=== PATIENT | male | born 1950 | race Caucasian/White ===

== ENCOUNTER 2018-03-14 21:58 | Inpatient (IN) | payer MEDICARE, MEDICAID ==
[2018-03-14] MEDS ORDERED: Piperacillin/Tazobactam 3.375 GM VIAL ONE (23:29)
[2018-03-15] MEDS ORDERED: Enoxaparin Sodium 40 MG/0.4 ML SYRINGE SC SCH (02:27)
[2018-03-15] MEDS ORDERED: Sodium Chloride 0.9% 1,000 ML IV SCH (02:27)
[2018-03-15] MEDS ORDERED: Ondansetron HCl/PF 4 MG/2 ML Vial IVP PRN (02:27)
[2018-03-15] MEDS ORDERED: Ondansetron ODT 4 MG TAB PO PRN (02:27)
[2018-03-15] MEDS ORDERED: Acetaminophen 325 MG TAB PO PRN (02:27)
[2018-03-15 05:52] LABS: #Eosinphils 0.1 thou/uL (0.0-0.7); #Lymphocytes 0.9 thou/uL (1.20-3.40); #Monocytes 0.4 thou/uL (0.11-0.59); #Neutrophils 4.1 thou/uL (1.40-6.50); %Basophils 0.2 % (0.0-1.0); %Eosinophils 2.5 % (0.0-10.0); %Lymphocytes 15.8 % (21.0-51.0); %Monocytes 6.6 % (0.0-10.0); %Neutrophils 74.9 % (42.0-75.0); Hemoglobin 8.8 g/dL (14.0-18.0); Mean Corpuscular Hemoglobin 30.8 pg (27.0-31.0); Mean Corpuscular Volume 96.2 fl (80.0-94.0); Mean Platelet Volume 6.3 fL (7.4-10.4); Platelet Count 143 thou/uL (130-400); RBC Distribution Width 13.9 % (11.5-14.5); Red Blood Cell (RBC) Count 2.84 mill/uL (4.70-6.10); White Blood Cell (WBC) Count 5.5 thou/uL (4.8-10.8)
--- NOTE | 2018-03-15 06:21 | HP ---
DATE OF ADMISSION: 03/14/2018 TIME OF SERVICE: 2330. CHIEF COMPLAINT: None. The patient was sent here for pneumonia and hypothermia. HISTORY OF PRESENT ILLNESS: Mr. Gonzalez is a 67-year-old white male who was sent to the [place] from the [facility]. He has been a resident there since 1973. He is having shortness of breath and cough and was noted to have a temperature on arrival there of 92 .8. He was given a dose of antibiotics, the patient was transferred here. The patient does have sev ere mental retardation. Chest x-ray reportedly had a left lower lobe retrocardiac infiltrate so he w as sent here for further workup. On arrival, temperature is 95.8 rectally. The patient was placed on a David Hugger with a repeat temp erature of 97.9 when I was seeing him. He is awake and alert and pleasant. He is not very talkative and is unable to give any further histo ry. PAST MEDICAL HISTORY: 1. Mental retardation. 2. Bipolar disorder, unknown type. 3. Adenocarcinoma of the colon, status post total colectomy. 4. Benign prostatic hypertrophy. 5. Bunions. 6. Bilateral cataracts. PAST SURGICAL HISTORY: Total colectomy. HOME MEDICATIONS: Home medications have been reviewed in their entirety and include: 1. Aspirin 81 mg daily. 2. Cholecalciferol 400 units p.o. b.i.d. 3. Proscar 5 mg daily. 4. Acidophilus 1 tablet t.i.d. 5. Lisinopril 2.5 mg daily 6. Multivitamin daily. 7. Neomycin/bacitracin/polymyxin B ointment topically as needed. 8. Zyprexa 20 mg p.o. q.p.m. 9. Ranitidine 150 mg p.o. b.i.d. 10. Simethicone 80 mg p.o. t.i.d. 11. Zocor 20 mg p.o. q.p.m. 12. Flomax 0.4 mg p.o. q.a.m. 13. Tolnaftate one spray topically daily. 14. Valproic acid 250 mg p.o. daily. ALLERGIES: NKDA. FAMILY HISTORY: Not obtainable from the patient. SOCIAL HISTORY: He lives at [facility] where has been since 1973. Per their records, he i s negative for alcohol, tobacco or drugs. REVIEW OF SYSTEMS: Not obtainable due to mental retardation. PHYSICAL EXAMINATION: VITAL SIGNS: Temperature 97.9, pulse 85, blood pressure 108/61, respiratory 18, satting 95% on room air. GENERAL: The patient is awake and alert. He appears to be in no acute distress. He is smiling and pleasant. He is quickly pulling the David Hugger back on him when it was taken off for examination. HEENT: Normocephalic, atraumatic. Does appear somewhat syndromic. Mucous membranes are moist. Pup ils are equal, round and reactive to light bilaterally, no lesions. NECK: Supple. I do not appreciate bruits. He has normal carotid upstrokes. LUNGS: Lungs are clear with excellent air movement. Some faint bibasilar crackles. I do not hear a nything in the retrocardiac region. There is no prolonged expiratory phase and no wheezes. CARDIOVASCULAR: He has normal S1 and S2. He is slightly tachycardic, but is regular. I do not appr eciate murmurs. ABDOMEN: Soft, it is nontender, nondistended, there is no mass, no organomegaly. EXTREMITIES: Show no cyanosis or clubbing. He has lower extremity contractures and severe deformity due to bunions. He has 1+ edema of the bilateral lower extremities. These stop just above the ankl e. LABORATORY DATA: CBC, CMP have been reviewed from the outside facility and are largely unremarkable. Chest x-ray showed a retrocardiac opacity, but no other acute changes. ASSESSMENT AND PLAN: 1. Possible left lower lobe pneumonia: We will continue levofloxacin 750 mg daily. 2. Hypothermia: In the setting of that, certainly could be a criteria for sepsis. I will continue antibiotics and watch. Being rewarmed and responding well. 3. Mental retardation. 4. Bipolar disorder. 5. History of adenocarcinoma of the colon, status post colectomy. 6. Bunions. 7. Benign prostatic hypertrophy on Flomax and Proscar, we will continue.
[2018-03-15 06:26] LABS: ALT (SGPT) 11 U/L (8-55); AST (SGOT) 15 U/L (5-34); Albumin 2.8 g/dL (3.4-4.8); Alkaline Phosphatase 84 U/L (40-150); Anion Gap 10 mmol/L (10-20); BUN (Urea Nitrogen) 6 mg/dL (8.4-25.7); Bilirubin, Total 0.5 mg/dL (0.2-1.2); Calc. Creatinine Clearance 85 mL/min (70-130); Calcium 8.8 mg/dL (7.8-10.44); Carbon Dioxide 25 mmol/L (23-31); Chloride 105 mmol/L (98-107); Estimated GFR-MDRD Greater than 90; Globulin 2.9 g/dL (2.4-3.5); Glucose 90 mg/dL (80-115); Protein, Total 5.7 g/dL (5.8-8.1); Sodium 136 mmol/L (136-145)
[2018-03-15] MEDS ORDERED: Non-Formulary Item 1 EACH (Ranitidine Hcl [Acid Reducer] 150 MG) PO SCH (09:00)
[2018-03-15] MEDS: Lisinopril 2.5 MG TAB PO SCH (09:08)
[2018-03-15] MEDS: Famotidine 20 MG TAB PO SCH ×2 (09:08→20:30)
[2018-03-15] MEDS: Valproic Acid 250 MG CAP PO SCH (09:09)
[2018-03-15] MEDS: Tamsulosin HCl 0.4 MG CAP PO SCH (09:09)
[2018-03-15] MEDS: Finasteride 5 MG TAB PO SCH (09:09)
[2018-03-15] MEDS: Multivitamin W/ Minerals 1 TAB PO SCH (09:09)
--- NOTE | 2018-03-15 12:08 | PDOC.PN ---
- Subjective Encounter Start Date: 03/15/18 Encounter Start Time: 11:50 Subjective: f/u for suspected LLL pneumonia and hypothermia. Currently receiving -: Levaquin and IVF's. No documented hypothermia per nursing. Pt asking -: to go home. - Objective Resuscitation Status: Resuscitation Status FULL:Full Resuscitation MAR Reviewed: Yes Vital Signs & Weight: Vital Signs (12 hours) Temp Pulse Resp BP BP BP Pulse Ox 03/15/18 11:42 97.4 F L 83 18 103/66 93 L 03/15/18 09:08 78 03/15/18 07:35 97.6 F 78 18 109/69 94 L 03/15/18 07:00 97.6 F 78 18 109/69 94 L 03/15/18 04:00 97.4 F L 78 16 116/60 94 L 03/15/18 03:15 97.9 F 84 16 03/15/18 02:27 97.9 F 84 16 120/70 93 L Weight Weight 119 lb 14.903 oz I&O: 03/14/18 03/15/18 03/16/18 06:59 06:59 06:59 Intake Total 750 Balance 750 Result Diagrams: 03/15/18 05:30 03/15/18 05:30 Additional Labs: Microbiology 03/14/18 22:45 Venous blood - Right Arm Blood Culture - Preliminary Specimen has been received and culture in progress. No Growth to date. 03/14/18 22:37 Venous blood - Right Hand Blood Culture - Preliminary Specimen has been received and culture in progress. No Growth to date. Radiology Reviewed by me: Yes (PCXR - pending) Phys Exam - Physical Examination Constitutional: NAD alert, talks a few words HEENT: PERRLA, moist MMs, sclera anicteric, oral pharynx no lesions Neck: no nodes, no JVD, supple Respiratory: no wheezing, no rales, no rhonchi, clear to auscultation bilateral Cardiovascular: RRR, no significant murmur, no rub Colostomy in place Gastrointestinal: soft, non-tender, no distention, positive bowel sounds Musculoskeletal: no edema, pulses present deformities of toes on bilat feet severe mental retardation Neurological: normal sensation, moves all 4 limbs Deviation from normal: few scattered abrasions on extremities Skin: normal turgor, cap refill <2 seconds Dx/Plan (1) LLL pneumonia Code(s): J18.1 - LOBAR PNEUMONIA, UNSPECIFIED ORGANISM Status: Acute Comment : Suspected with gm + cocci, continue Levaquin 750mg daily, monitor clinical progress, Pneumovax prior to d/c, check PCXR today (2) Hypothermia Code(s): T68.XXXA - HYPOTHERMIA, INITIAL ENCOUNTER Status: Acute Comment: Resolving, continue serial monitoring (3) HTN (hypertension) Code(s): I10 - ESSENTIAL (PRIMARY) HYPERTENSION Status: Chronic Qualifiers: Hypertension type: essential hypertension Qualified Code(s): I10 - Essential (primary) hypertension Comment: Resume Lisinopril 2.5mg daily, serial monitoring (4) Severe mental retardation Code(s): F72 - SEVERE INTELLECTUAL DISABILITIES Status: Chronic Comment: Sitter for 1:1, supportive mgmt (5) Macrocytic anemia Code(s): D53.9 - NUTRITIONAL ANEMIA, UNSPECIFIED Status: Chronic Comment: No current evidence of acute blood loss, repeat CBC in am to monitor - Plan continue antibiotics, social services assistant, respiratory therapy, DVT proph w/SCDs Continue supportive mgmt -: Saline lock IVF's -: PCXR today -: Continue Levaquin 750mg daily -: AM lab: BMP, CBC * Trial of pureed texture diet
--- NOTE | 2018-03-15 15:32 | RAD ---
PORTABLE AP CHEST: Date: 03/15/18 HISTORY: Left lower quadrant pneumonia. COMPARISON: 03/14/13. FINDINGS: Cardiac silhouette and pulmonary vasculature are within normal limits. While the retrocardiac region is not well evaluated, no definite consolidation is seen and there is no pleural effusion. Lungs are otherwise clear. A few small radiopaque densities overlie the right clavicle, which may be related to overlying artifact. Vascular calcification thoracic aorta. There is prominent osseous excrescence at the inferior aspect of the distal clavicle which may be related to prior injury. No other interval c hange. IMPRESSION: 1. No acute cardiopulmonary process. If patient's symptoms persist, follow-up imaging is advised wit h a PA and lateral chest x-ray. 2. Stable remote left-sided rib fractures. POS: [facility]
[2018-03-15] MEDS: Atorvastatin Calcium 10 MG TAB PO SCH (20:29)
[2018-03-15] MEDS: OLANZapine 5 MG TAB PO SCH (20:29)
[2018-03-15] MEDS ORDERED: Zolpidem Tartrate 5 MG TAB PO SCH (22:15)
[2018-03-16 04:55] LABS: Anion Gap 11 mmol/L (10-20); BUN (Urea Nitrogen) 7 mg/dL (8.4-25.7); Calc. Creatinine Clearance 79 mL/min (70-130); Calcium 9.3 mg/dL (7.8-10.44); Carbon Dioxide 28 mmol/L (23-31); Chloride 103 mmol/L (98-107); Estimated GFR-MDRD Greater than 90; Glucose 74 mg/dL (80-115); Sodium 138 mmol/L (136-145)
[2018-03-16 05:05] LABS: Band 4 % (5-11); Eosinophils 3 % (0-10); Hemoglobin 9.4 g/dL (14.0-18.0); Lymphocytes 30 % (21-51); MDiff Complete? YES; Mean Corpuscular HGB CONC 33.7 g/dL (32.0-36.0); Mean Corpuscular Hemoglobin 32.5 pg (27.0-31.0); Mean Corpuscular Volume 96.4 fl (80.0-94.0); Mean Platelet Volume 6.1 fL (7.4-10.4); Monocytes 7 % (0-10); Neutrophil 55 % (42-75); Platelet Count 143 thou/uL (130-400); RBC Distribution Width 13.7 % (11.5-14.5); Red Blood Cell (RBC) Count 2.89 mill/uL (4.70-6.10); White Blood Cell (WBC) Count 4.8 thou/uL (4.8-10.8)
[2018-03-16] MEDS: Lisinopril 2.5 MG TAB PO SCH (09:52)
[2018-03-16] MEDS: Finasteride 5 MG TAB PO SCH (09:52)
[2018-03-16] MEDS: Famotidine 20 MG TAB PO SCH ×2 (09:53→20:30)
[2018-03-16] MEDS: Tamsulosin HCl 0.4 MG CAP PO SCH (09:53)
[2018-03-16] MEDS: Valproic Acid 250 MG CAP PO SCH (09:54)
[2018-03-16] MEDS: Multivitamin W/ Minerals 1 TAB PO SCH (09:54)
--- NOTE | 2018-03-16 12:23 | PDOC.PN ---
- Subjective Encounter Start Date: 03/16/18 Encounter Start Time: 12:10 Subjective: f/u for suspected LLL PNA and hypothermia. No specific cough, fever or -: hypothermia documented. Eating ok but no BM or colostomy ouput -: recorded. - Objective MAR Reviewed: Yes Vital Signs & Weight: Vital Signs (12 hours) Pulse Resp BP BP Pulse Ox 03/16/18 09:52 59 L 113/59 L 03/16/18 07:15 59 L 16 113/57 L 93 L Weight Admit Weight 119 lb 14.896 oz Weight 119 lb 14.896 oz I&O: 03/15/18 03/16/18 03/17/18 06:59 06:59 06:59 Intake Total 930 Balance 930 Result Diagrams: 03/16/18 04:16 03/16/18 04:16 Additional Labs: Microbiology 03/14/18 22:45 Venous blood - Right Arm Blood Culture - Preliminary Specimen has been received and culture in progress. No Growth to date. 03/14/18 22:45 Venous blood - Right Arm Blood Culture - Preliminary NO GROWTH AT 48 HOURS 03/14/18 22:37 Venous blood - Right Hand Blood Culture - Preliminary Specimen has been received and culture in progress. No Growth to date. 03/14/18 22:37 Venous blood - Right Hand Blood Culture - Preliminary NO GROWTH AT 48 HOURS 03/14/18 17:30 Venous blood - Right Arm Blood Culture - Preliminary Specimen has been received and culture in progress. No Growth to date. 03/14/18 17:00 Venous blood - Right Arm Blood Culture - Preliminary Specimen has been received and culture in progress. No Growth to date. Radiology Reviewed by me: Yes (PCXR - no acute infiltrates) Phys Exam - Physical Examination Constitutional: NAD alert, mumbles HEENT: PERRLA, sclera anicteric, oral pharynx no lesions Neck: no nodes, no JVD, supple Respiratory: no wheezing, no rales, no rhonchi, clear to auscultation bilateral Cardiovascular: RRR, no significant murmur, no rub, gallop + colostomy in LUQ, no output noted Gastrointestinal: soft, non-tender, no distention, positive bowel sounds Musculoskeletal: no edema, pulses present Neurological: non-focal, moves all 4 limbs Skin: no rash, normal turgor, cap refill <2 seconds Dx/Plan (1) LLL pneumonia Code(s): J18.1 - LOBAR PNEUMONIA, UNSPECIFIED ORGANISM Status: Acute Comment : Suspected but repeat PCXR negative, d/c Levaquin, monitor clinical progress, Pneumovax prior to d/c (2) Hypothermia Code(s): T68.XXXA - HYPOTHERMIA, INITIAL ENCOUNTER Status: Acute Comment: Resolving, continue serial monitoring (3) Constipation Code(s): K59.00 - CONSTIPATION, UNSPECIFIED Status: Acute Qualifiers: Constipation type: slow transit constipation Qualified Code(s): K59.01 - Slow transit constipation Comment: Start Mag Citrate today, monitor for colostomy output (4) HTN (hypertension) Code(s): I10 - ESSENTIAL (PRIMARY) HYPERTENSION Status: Chronic Qualifiers: Hypertension type: essential hypertension Qualified Code(s): I10 - Essential (primary) hypertension Comment: Resume Lisinopril 2.5mg daily, serial monitoring (5) Severe mental retardation Code(s): F72 - SEVERE INTELLECTUAL DISABILITIES Status: Chronic Comment: Sitter for 1:1, supportive mgmt (6) Macrocytic anemia Code(s): D53.9 - NUTRITIONAL ANEMIA, UNSPECIFIED Status: Chronic Comment: No current evidence of acute blood loss, repeat CBC in am to monitor - Plan social welfare clerk, DVT proph w/SCDs Stable overall -: Mag Citrate 300ml today -: D/C Levaquin -: Saline lock IVF -: Monitor po intake with Mech soft diet * Likely back to [facility] in 24h
[2018-03-16] MEDS ORDERED: Magnesium Citrate 300 ML BOT PO SCH (13:00)
[2018-03-16] MEDS ORDERED: Lorazepam 2 MG/ML VIAL SLOW IVP SCH (15:45)
[2018-03-16] MEDS: OLANZapine 5 MG TAB PO SCH (18:31)
[2018-03-16] MEDS: Atorvastatin Calcium 10 MG TAB PO SCH (20:31)
[2018-03-16] MEDS ORDERED: Lorazepam 2 MG/ML VIAL SLOW IVP PRN (21:45)
--- NOTE | 2018-03-17 08:32 | PQF ---
CLINICAL DOCUMENTATION IMPROVEMENT CLARIFICATION FORM: ICD-10 Updated PLEASE DO AN ADDENDUM TO THE PROGRESS NOTE WITH ANY DOCUMENTATION UPDATES OR ADDITIONS AND CARRY THROUGH TO DC SUMMARY. THANK YOU. DATE: 03/17 ATTN: DR. SHANE MCCLELLAN Please exercise your independent, professional judgment in responding to the clarification form. Clinical indicators are provided on the bottom of this form for your review Please check appropriate box(s): ___x____ I (concur) with the Wound Care findings as stated below. [ ] Pressure Ulcer: (Stage I: Erythema; Stage II: Partial thickness; Stage III : Full thickness; Stage IV: Necrosis to muscle/bone) [ ] Location: POA: [ ] Yes [ ] No[ ] Unable to determine Stage (I to IV): (Left Right Bilateral N/A ) [ ] Location: POA: [ ] Yes [ ] No[ ] Unable to determine Stage (I to IV): (Left Right Bilateral N/A ) [ ] No pressure ulcer diagnosis [ ] Other diagnosis [ ] Unable to determine In addition, please specify: Present on Admission (POA): [ x ] Yes [ ] No [ ] Unable to determine For continuity of documentation, please document condition throughout progress notes and discharge summary. Thank You. CLINICAL INDICATORS - SIGNS / SYMPTOMS / LABS WOUND CARE CONSULT DOCUMENTATION 03/15: STAGE II PRESSURE ULCER R 1ST METATARSAL HEAD, MEDIAL ASPECT RISK FACTORS: SEVERE INTELLECTUAL DISABILITY BLE CONTRACTURES REQUIRES TOTAL ASSISTANCE TREATMENTS: WOUND CARE CONSULT & DAILY TREATMENT SPECIALTY MATTRESS TURN Q 2HRS THANK YOU! Sandra (This form is maintained as a part of the permanent medical record) 2014 [employer]. All Rights Reserved Sandra Davila RN, BSN [email or web address] Office: [phone] [facility]
[2018-03-17] MEDS: Valproic Acid 250 MG CAP PO SCH (09:00)
[2018-03-17] MEDS: Tamsulosin HCl 0.4 MG CAP PO SCH (09:00)
[2018-03-17] MEDS: Finasteride 5 MG TAB PO SCH (09:01)
[2018-03-17] MEDS: Famotidine 20 MG TAB PO SCH ×2 (09:01→20:45)
[2018-03-17] MEDS: Lisinopril 2.5 MG TAB PO SCH (09:01)
[2018-03-17] MEDS: Multivitamin W/ Minerals 1 TAB PO SCH (09:01)
[2018-03-17] MEDS ORDERED: Senokot 8.6 MG TAB PO SCH (12:00)
[2018-03-17] MEDS: OLANZapine 5 MG TAB PO SCH (18:32)
--- NOTE | 2018-03-17 19:52 | PDOC.PN ---
- Subjective Encounter Start Date: 03/17/18 Encounter Start Time: 19:30 Subjective: f/u for ? LLL PNA but clinically resolved. Concern due to lack of ostomy -: output since admit. Received Mag citrate and Senna but only scant -: production. Eating well per nursing. - Objective MAR Reviewed: Yes Vital Signs & Weight: Vital Signs (12 hours) Pulse 03/17/18 09:01 55 L Weight Admit Weight 119 lb 14.896 oz Weight 119 lb 14.896 oz I&O: 03/16/18 03/17/18 03/18/18 06:59 06:59 06:59 Intake Total 930 240 Output Total 0 Balance 930 240 Result Diagrams: 03/16/18 04:16 03/16/18 04:16 Phys Exam - Physical Examination Constitutional: NAD alert, nods to questions, mumbles a few words HEENT: PERRLA, moist MMs, sclera anicteric, oral pharynx no lesions Neck: no nodes, no JVD, supple Respiratory: no wheezing, no rales, no rhonchi, clear to auscultation bilateral Cardiovascular: RRR, no significant murmur, no rub, gallop colostomy site intact Gastrointestinal: soft, non-tender, no distention, positive bowel sounds contractures at hips and knees Musculoskeletal: no edema, pulses present Neurological: moves all 4 limbs Deviation from normal: Right 1st metatarsal medially with Stage II ulcer Skin: normal turgor, cap refill <2 seconds Dx/Plan (1) Constipation Code(s): K59.00 - CONSTIPATION, UNSPECIFIED Status: Acute Qualifiers: Constipation type: slow transit constipation Qualified Code(s): K59.01 - Slow transit constipation Comment: s/p mag citrate and Senna, add Miralax and Colace, consider KUB in am if no response (2) LLL pneumonia Code(s): J18.1 - LOBAR PNEUMONIA, UNSPECIFIED ORGANISM Status: Resolved Comment: Suspected but repeat PCXR negative, d/c Levaquin, monitor clinical progress, Pneumovax prior to d/c (3) Hypothermia Code(s): T68.XXXA - HYPOTHERMIA, INITIAL ENCOUNTER Status: Resolved Comment : Resolving, continue serial monitoring (4) HTN (hypertension) Code(s): I10 - ESSENTIAL (PRIMARY) HYPERTENSION Status: Chronic Qualifiers: Hypertension type: essential hypertension Qualified Code(s): I10 - Essential (primary) hypertension Comment: Resume Lisinopril 2.5mg daily, serial monitoring (5) Severe mental retardation Code(s): F72 - SEVERE INTELLECTUAL DISABILITIES Status: Chronic Comment: Sitter for 1:1, supportive mgmt (6) Pressure ulcer of toe of right foot, stage 2 Code(s): L89.892 - PRESSURE ULCER OF OTHER SITE, STAGE 2 Status: Chronic Comment: Local care, offload pressure, present prior to admission (7) Macrocytic anemia Code(s): D53.9 - NUTRITIONAL ANEMIA, UNSPECIFIED Status: Chronic Comment: No current evidence of acute blood loss, repeat CBC in am to monitor - Plan director of social media marketing, DVT proph w/SCDs Stable overall -: Continue Sennokot-S BID -: Add Colace and Miralax -: Change Ativan 0.5mg IV q8h prn -: Ostomy care daily * Likely can transition back to [facility] in 24-48h
[2018-03-17] MEDS ORDERED: Polyethylene Glycol 3350 17 GM Packet PO SCH (20:00)
[2018-03-17] MEDS ORDERED: Lorazepam 2 MG/ML VIAL SLOW IVP PRN (20:04)
[2018-03-17] MEDS: Senokot S 8.6-50 MG TAB PO SCH (20:46)
[2018-03-17] MEDS: Atorvastatin Calcium 10 MG TAB PO SCH (20:46)
[2018-03-17] MEDS: Docusate 100 MG CAP PO SCH (20:46)
[2018-03-18 07:54] VITALS: BP 92/58
[2018-03-18] MEDS: Senokot S 8.6-50 MG TAB PO SCH (08:10)
[2018-03-18] MEDS: Famotidine 20 MG TAB PO SCH (08:10)
[2018-03-18] MEDS: Valproic Acid 250 MG CAP PO SCH (08:10)
[2018-03-18] MEDS: Docusate 100 MG CAP PO SCH (08:11)
[2018-03-18] MEDS: Finasteride 5 MG TAB PO SCH (08:11)
[2018-03-18] MEDS: Multivitamin W/ Minerals 1 TAB PO SCH (08:11)
[2018-03-18] MEDS: Tamsulosin HCl 0.4 MG CAP PO SCH (08:11)
[2018-03-18] MEDS: Lisinopril 2.5 MG TAB PO SCH (08:13)
[2018-03-18] MEDS ORDERED: Polyethylene Glycol 3350 17 GM Packet PO SCH (09:00)
[2018-03-18 09:56] VITALS: TEMP 98.1
--- NOTE | 2018-03-18 14:05 | DIS ---
DATE OF ADMISSION: 03/15/2018 DATE OF DISCHARGE: 03/18/2018 DISCHARGE DIAGNOSES: 1. Left lower lobe community-acquired pneumonia, resolving. 2. Constipation, resolved. 3. Hypothermia, resolved. 4. Hypertension, stable. 5. Severe mental retardation, chronic. 6. Pressure ulcer of the toe of the right foot, stage 2, stable. 7. Macrocytic anemia, stable. CONSULTATIONS: None. PERTINENT LABORATORY DATA AND X-RAY FINDINGS: Basic metabolic profile within normal limits. CBC anny wed a white blood cell count ranged between 4.8-5.5, hemoglobin ranged between 8.8-9.4, blood culture s x2 from 03/14/2018 showed no growth at 48 hours. Portable chest x-ray dated 03/15/2018 showed no a cute cardiopulmonary process. HOSPITAL COURSE: Patient was admitted to the medical floor after presenting with suspected left lowe r lobe pneumonia, community acquired with gram positive cocci suspected. The patient was also noted with questionable hypothermia and placed on antibiotic therapy with Levaquin 750 mg daily. The patie nt received IV antibiotic therapy for approximately 72 hours with repeat chest x-ray showing no acute infiltrate as stated previously. Serial monitoring of patient's temperature showed no evidence of h ypothermia and the patient remained clinically stable, exhibiting no focal evidence of infectious pro cess. The patient did have difficulty with constipation receiving multiple stool softeners and bowel stimulants ultimately with successful passage of stool through the colostomy. The patient overall r emained clinically stable, tolerating regular oral intake with stable vital signs throughout the hosp ital course. I examined the patient at the time of discharge and discuss followup instructions with the patient's caregiver at the bedside. Overall, the patient is clinically stable and ready for disc harge on 03/18/2018. DISCHARGE MEDICATIONS: 1. Enteric coated aspirin 81 mg 1 tab p.o. daily. 2. Vitamin D3 400 units p.o. b.i.d. 3. Colace 100 mg p.o. b.i.d. 4. Proscar 5 mg p.o. daily. 5. Acidophilus 1 tablet p.o. t.i.d. 6. Lisinopril 2.5 mg p.o. daily. 7. Multivitamin 1 tab p.o. daily. 8. Triple antibiotic ointment applied to affected area daily p.r.n. 9. Zyprexa 20 mg p.o. daily. 10. MiraLax 17 grams p.o. daily. 11. Ranitidine 150 mg p.o. b.i.d. 12. Senokot-S 1 tablet p.o. b.i.d. 13. Simethicone 80 mg p.o. t.i.d. p.r.n. 14. Zocor 20 mg p.o. at bedtime. 15. Tamsulosin 0.4 mg p.o. daily. 16. Tolnaftate powder 1 spray topically daily. 17. Valproic acid 250 mg p.o. daily. FOLLOWUP: Patient will follow up with Dr. Gar at [facility] on discharge. CONDITION ON DISCHARGE: Stable. ACTIVITY: ad rachna. DIET: Regular. CODE STATUS: FULL. DISPOSITION: Discharge to [facility] current resident, 03/18/2018.
== END 2018-03-18 14:14 | disposition home or self-care (01) | DRG 194 ==
LOC: ERS 21:58 → INTOOBSV 23:50 → ONC 23:50 → OBSVTOIN 03-15 12:14
PROVIDERS: ADMIT Internal Medicine Infectious Disease; ATTEND Internal Medicine Infectious Disease
DX: J18.9 Pneumonia, unspecified organism (principal); F72 Severe intellectual disabilities; L89.892 Pressure ulcer of other site, stage 2; F31.9 Bipolar disorder, unspecified; F79 Unspecified intellectual disabilities; R68.0 Hypothermia, not associated with low environmental temperature; N40.0 Benign prostatic hyperplasia without lower urinary tract symptoms; D53.9 Nutritional anemia, unspecified; K59.00 Constipation, unspecified; I10 Essential (primary) hypertension; Z90.49 Acquired absence of other specified parts of digestive tract; Z79.899 Other long term (current) drug therapy; Z85.038 Personal history of other malignant neoplasm of large intestine; Z79.82 Long term (current) use of aspirin
CPT/HCPCS: 36415; 71045; 80048; 80053; 85007; 85025; 85027; 96365; 96367; J1650; J1956; J2060; J2543; J3370

== ENCOUNTER 2018-03-22 15:21 | Inpatient (IN) | payer MEDICARE, MEDICAID ==
[2018-03-22 16:11] LABS: #Eosinphils 0.1 thou/uL (0.0-0.7); #Lymphocytes 1.2 thou/uL (1.20-3.40); #Monocytes 0.5 thou/uL (0.11-0.59); #Neutrophils 5.1 thou/uL (1.40-6.50); %Basophils 0.2 % (0.0-1.0); %Eosinophils 0.8 % (0.0-10.0); %Monocytes 7.9 % (0.0-10.0); %Neutrophils 74.1 % (42.0-75.0); Hemoglobin 11.3 g/dL (14.0-18.0); Mean Corpuscular Hemoglobin 32.3 pg (27.0-31.0); Mean Platelet Volume 7.2 fL (7.4-10.4); Platelet Count 189 thou/uL (130-400); RBC Distribution Width 14.2 % (11.5-14.5); Red Blood Cell (RBC) Count 3.48 mill/uL (4.70-6.10); White Blood Cell (WBC) Count 6.8 thou/uL (4.8-10.8)
--- NOTE | 2018-03-22 16:46 | RAD ---
CHEST ONE VIEW ABDOMEN TWO VIEWS 03/22/18 HISTORY: Chest and abdomen pain. COMPARISON: 03/15/18 FINDINGS: The cardiac silhouette is magnified by projection. Pulmonary vasculature is unremarkable. Patient is rotated leftward. No lobar consolidation or evidence of free subdiaphragmatic gas. Old healed left ri b fractures are apparent. Large amount of stool is apparent throughout the colon. No differential air fluid levels are visible. Radiopaque tubing overlies the right abdomen on the supine view. Rounded opacity of the left lower q uadrant may represent an ostomy appliance. IMPRESSION: 1. No active cardiopulmonary abnormalities are demonstrated. 2. Constipation. Possible colostomy. POS: [facility]
[2018-03-22 17:13] LABS: Chloride 106 mmol/L (98-107); Potassium 4.3 mmol/L (3.5-5.1); Sodium 138 mmol/L (136-145)
[2018-03-22 17:14] LABS: Calcium 9.1 mg/dL (7.8-10.44); Glucose 97 mg/dL (80-115)
[2018-03-22 17:16] LABS: Anion Gap 12 mmol/L (10-20); Carbon Dioxide 24 mmol/L (23-31)
[2018-03-22 17:18] LABS: Calc. Creatinine Clearance 0 mL/min (70-130); Estimated GFR-MDRD 80
[2018-03-22 17:19] LABS: BUN (Urea Nitrogen) 45 mg/dL (8.4-25.7)
--- NOTE | 2018-03-22 17:31 | CT ---
CT HEAD NONCONTRAST: 03/22/18 HISTORY: Altered mental status. FINDINGS: No comparison. There is no evidence of acute intracranial hemorrhage or infarct. The ventricles appear normal in siz e, shape and position. There is no mass effect or shift of midline structures. The visualized paranas al sinuses remain well aerated. IMPRESSION: No acute intracranial abnormalities are demonstrated on noncontrast CT head. POS: [facility]
[2018-03-22 17:42] LABS: ALT (SGPT) 14 U/L (8-55); AST (SGOT) 22 U/L (5-34); Albumin 3.4 g/dL (3.4-4.8); Alkaline Phosphatase 113 U/L (40-150); Bilirubin, Direct 0.4 mg/dL (0.1-0.3); Bilirubin, Total 0.8 mg/dL (0.2-1.2); Protein, Total 6.9 g/dL (5.8-8.1)
[2018-03-22 18:14] LABS: Bilirubin Negative (Negative); Blood, Urine Negative (Negative); Clarity CLEAR (Clear); Glucose, Urine (Dipstick) Negative (Negative); Leukocyte Negative (Negative); Nitrite Negative (Negative); Protein, Urine (Dipstick) Negative (Neg-Trace); Specific Gravity, Urine 1.021 (1.002-1.036); Urobilinogen 0.2 mg/dL (0.2-1.0); pH, Urine 6.5 (5.0-9.0)
--- NOTE | 2018-03-22 18:23 | PDOC.FPRHP ---
- History of Present Illness Chief Complaint: "I'm hungry" History of Present Illness: See upper level section below ED Course: 1L bolus of NS given in ER - Allergies/Adverse Reactions Allergies Allergy/AdvReac Type Severity Reaction Status Date / Time No Known Allergies Allergy Verified 03/15/18 03:12 - Home Medications Medication Instructions Recorded Confirmed Type Cholecalciferol (Vitamin D3) 400 unit PO BID 09/24/15 03/15/18 History [Vitamin D3] L. Acidophilus/Pectin, [place] 1 tablet PO TID 09/24/15 03/15/18 History [Acidophilus Caplet] Lisinopril 2.5 mg PO DAILY 09/24/15 03/15/18 History Multivitamin [Multi-Vitamin Daily] 1 tablet PO DAILY 09/24/15 03/15/18 History OLANZapine [ZyPREXA] 20 mg PO 1900 09/24/15 03/15/18 History Simethicone [Gas Relief] 80 mg PO TID 09/24/15 03/15/18 History Tamsulosin HCl [Flomax] 0.4 mg PO QAM 09/24/15 03/15/18 History Valproic Acid [Depakene] 250 mg PO DAILY 09/24/15 03/15/18 History Aspirin [Aspirin Chewable Tablet] 81 mg PO DAILY 03/15/18 03/15/18 History Finasteride [Proscar] 5 mg PO DAILY 03/15/18 03/15/18 History Neomycin/Bacitracin/PolymyxinB 1 each TP PRN PRN 03/15/18 03/15/18 History [Medichoice Triple Antibiotic] Ranitidine HCl [Acid Filler Shredder Helper] 150 mg PO BID 03/15/18 03/15/18 History Simvastatin [Zocor] 20 mg PO QPM 03/15/18 03/15/18 History Tolnaftate [Tolnaftate 1% [place] 1 spray TOP DAILY 03/15/18 03/15/18 History Powder] Docusate [Colace] 100 mg PO BID cap 03/18/18 Rx Polyethylene Glycol 3350 [Miralax] 17 gm PO DAILY pk 03/18/18 Rx Sennosides/Docusate Sodium 1 tab PO BID tab 03/18/18 Rx [Senokot S] - History PMHx: 1) h/o colonic adenocarcinoma with total colectomy 2) BPH 3) HTN 4) GERD 5) HLD 6) Seizure disorder 7) Bilateral cataracts 8) Bipolar disorder PSHx: 1) Total colectomy with colostomy placement FHx: Unremarkable Social: Negative x 3. Patient has lived at [facility] since 1973. - Review of Systems ROS unobtainable: due to mental status - Vital signs BP: 129/80 HR: 89 RR: 14 Tmax: 97.6 Pox: 95% on RA Wt: 58.97 kg FMR H&P: Results - Labs Result Diagrams: 03/22/18 16:06 03/22/18 16:57 Lab results: WBC 6.8 thou/uL (4.8-10.8) 03/22/18 16:06 Hgb 11.3 g/dL (14.0-18.0) L 03/22/18 16:06 Hct 34.1 % (42.0-52.0) L 03/22/18 16:06 MCV 98.0 fl (80.0-94.0) H 03/22/18 16:06 Plt Count 189 thou/uL (130-400) 03/22/18 16:06 Neutrophils % 74.1 % (42.0-75.0) 03/22/18 16:06 Sodium 138 mmol/L (136-145) 03/22/18 16:57 Potassium 4.3 mmol/L (3.5-5.1) 03/22/18 16:57 Chloride 106 mmol/L (98-107) 03/22/18 16:57 Carbon Dioxide 24 mmol/L (23-31) 03/22/18 16:57 BUN 45 mg/dL (8.4-25.7) H 03/22/18 16:57 Creatinine 0.94 mg/dL (0.6-1.3) 03/22/18 16:57 Glucose 97 mg/dL (80-115) 03/22/18 16:57 Calcium 9.1 mg/dL (7.8-10.44) 03/22/18 16:57 Total Bilirubin 0.8 mg/dL (0.2-1.2) 03/22/18 16:59 AST 22 U/L (5-34) 03/22/18 16:59 ALT 14 U/L (8-55) 03/22/18 16:59 Alkaline Phosphatase 113 U/L (40-150) 03/22/18 16:59 Serum Total Protein 6.9 g/dL (5.8-8.1) 03/22/18 16:59 Albumin 3.4 g/dL (3.4-4.8) 03/22/18 16:59 Lipase 9 U/L (8-78) 03/22/18 16:59 Urine Ketones Negative mg/dL (Negative) 03/22/18 17:55 Urine Blood Negative (Negative) 03/22/18 17:55 Urine Nitrite Negative (Negative) 03/22/18 17:55 Ur Leukocyte Esterase Negative (Negative) 03/22/18 17:55 - EKG Interpretation EKG: Not performed - Radiology Interpretation CT scan - head Status: report reviewed by me (No acute intracranial abnormality) CT scan - abdomen Status: report reviewed by me (evidence of constipation but no acute pathology) FMR H&P: Upper Level - Pertinent history 67 y/o M with pmhx of severe mental retardation requiring 24 h care presents due to frequent regurgitation with oral feeds and resultant decreased oral intake x [address] Long, a speech pathologist at his facility performed a bedside evaluation today and determined that he was unsafe for all diets. Caregiver reports multiple hospitalizations over the past several months, most recently with possible aspiration pneumonia. Of note, patient was also recently diagnosed with zenker's diverticulum by Dr. Long. Doctors caring for him at [facility] were concerned for de-conditioning and requesting PEG tube placement. Caregiver also concerned for possible new stroke due to worsened left -sided lean and apparent lower extremity weakness x 1 day. Denies facial droop, speech changes or other neurological symptoms. Mental status is at baseline per caregiver. PCP is Dr. Covington. - Pertinent findings Gen: underweight appearing, NAD, AAOx0 HEENT: NC/AT; sclera nonicteric, no conjuctival injection; TMs clear Neck: no lymphadenopathy or bruits CV: RRR, no m/g/r Lungs: CTAB, non-labored GI: +BS, non-tender, left sided colostomy appears well-perfused Neuro: Unable to perform full exam due to inability to follow most commands; PEERLA; face symmetric; moves all extremities equally MSK: deformity of R third toe Ext: no c/c/e Pulses: DP 1+ b/l Skin: No obvious ulcer - Plan Date/Time: 03/22/181818 A/P: 1) Concern for severe aspiration due to Zenker's diverticulum: Admit to medical and keep strictly NPO O/N. Aspiration precuations ordered. GI consulted for possible PEG tube; however, concern for proximity of colostomy to location of PEG placement as well as patient's strong desire to continue oral feeds. Speech consultation and modified barium swallow ordered to confirm aspiration (if patient able to tolerate). Spoke with sister (not POA) who stated that she would just like for us to do whatever is in the patient's best interest. Will consider ethics consultation if needed. 2) Deconditioning: PT/OT; fall precautions 3) Concern for malnutrition: Prealbumin pending; camera repair technician consultation ordered. 4) H/o adenocarcinoma requiring colonic resection and colostomy placement 5) Macrocytic anemia: B12/folate ordered. 6) Mild dehydration: IV fluids O/N 7) Mild TIGRE v. CKDII: as above 8) Other chronic medical conditions: will restart home medications after decision made regarding PEG v. comfort feeds; will put prn IV BP meds on d/t h/ o HTN Attending Addendum - Attending Addendum Date/Time: 03/22/182047 I personally evaluated the patient and discussed the management with Dr. Angela on 03/22/18. I agree with the History, Examination, Assessment and Plan documented above with any addition or exceptions noted below. Patient with Zenker's diverticulum causing severe aspiration. Keep NPO tonight , will discuss plan with GI in AM.
[2018-03-22] MEDS ORDERED: Sodium Chloride 0.9% 1,000 ML IV SCH (19:47)
[2018-03-22] MEDS ORDERED: Ondansetron HCl/PF 4 MG/2 ML Vial IVP PRN ×2 (19:47→20:04)
[2018-03-22] MEDS ORDERED: Ondansetron ODT 4 MG TAB SL PRN (19:47)
[2018-03-22] MEDS ORDERED: Acetaminophen 650 MG Suppository PR PRN (20:04)
[2018-03-22] MEDS ORDERED: Milk Of Magnesia 30 ML UDCUP PO PRN (20:04)
[2018-03-22] MEDS ORDERED: Ondansetron ODT 4 MG TAB PO PRN (20:04)
[2018-03-22] MEDS ORDERED: Bisacodyl 5 MG TAB PO PRN (20:04)
[2018-03-22] MEDS ORDERED: Acetaminophen 325 MG TAB PO PRN (20:04)
[2018-03-22] MEDS ORDERED: hydrALAZINE 20 MG/ML VIAL SLOW IVP PRN (20:12)
[2018-03-22] MEDS ORDERED: Docusate 100 MG CAP PO PRN (20:14)
[2018-03-22] MEDS ORDERED: OLANZapine 10 MG VIAL IM PRN (20:26)
[2018-03-22] MEDS: Dextrose 5 %-0.45 % NaCl 1,000 ML IV SCH (20:52)
[2018-03-22] MEDS ORDERED: Docusate 100 MG CAP PO SCH (21:00)
--- NOTE | 2018-03-22 21:55 | CON ---
DATE OF CONSULTATION: 03/22/2018 CHIEF COMPLAINT: Trouble swallowing. HISTORY OF PRESENT ILLNESS: Mr. Gonzalez is a 67-year-old man with severe developmental delay who was sent over from the [facility] due to trouble swallowing. He had jus t been in the hospital last week for pneumonia. The speech pathologist at the [facility] s at with him while he was eating yesterday and noted that he was high risk for aspiration with all con sistencies. He was made n.p.o. around 1:00 p.m. yesterday and he presented to the GI clinic this aft [facility] for evaluation. He also reportedly had an episode of regurgitation a couple of days ago. He was noted to have a large amount of stool throughout his colon. Patient is cooperative, but not verb ally communicative for the most part. He does state that he is hungry several times when I was talki ng with him this evening. PAST MEDICAL HISTORY: Colon cancer. He underwent laparoscopic right hemicolectomy for hepatic flexu re colon cancer back in 2012. He returned a month later with volvulus of the colon and required a le ft colon resection with end colostomy. His last colonoscopy was in 08/2016. The colonoscope was adv anced through the colostomy site then to the transverse colon and anastomosis between the colon and s mall bowel. Also, the rectal stump was examined at that time and no recurrence of disease was seen. He has severe developmental delay, hyperlipidemia. He has had BPH, and cataracts. PAST SURGICAL HISTORY: Initially right colon resection and then left colon resection. He does have some remaining transverse colon with an end colostomy in the left upper quadrant and a rectal stump a s well. FAMILY HISTORY: Unknown. SOCIAL HISTORY: Negative for alcohol, tobacco or drugs. ALLERGIES: No known drug allergies. MEDICATIONS: At the time of discharge from the hospital on 03/18/2018 include aspirin 81 mg daily, v itamin D, Colace, Proscar, Acidophilus, lisinopril, multiple vitamin, Zyprexa, MiraLax, ranitidine, S enokot, simethicone, Zocor, tamsulosin, valproic acid. REVIEW OF SYSTEMS: Not obtainable. PHYSICAL EXAMINATION: VITAL SIGNS: Blood pressure 121/79, pulse 88, temperature 98.3. GENERAL: He is in no acute distress. He is awake and alert. He follows simple commands. He states that he is hungry. HEENT: His eyes have no scleral icterus. Oropharynx is clear, without lesions. NECK: No cervical or supraclavicular lymphadenopathy. LUNGS: Clear to auscultation bilaterally. HEART: Regular rate and rhythm. ABDOMEN: Soft, nondistended, no obvious tenderness. He has a colostomy in the left upper quadrant. He did grab at the colostomy bag when the strap was lifted and his livestock caretaker states he does this oft en. EXTREMITIES: Have no lower extremity edema. LABORATORY DATA: White blood cell count 6.8, hemoglobin 11.3, platelets 189. INR 1.3, creatinine 0. 94, albumin 3.4. IMPRESSION: 1. Dysphagia. Bedside evaluation by Speech Pathology at the [facility] yesterday suggeste d high risk for aspiration with all consistencies. He was just hospitalized with pneumonia last week and it is possible that there is a component of aspiration at that point. A gastrostomy tube would normally be the next course of action; however, there are multiple potential complications regarding this. 2. The colostomy site is in the left upper quadrant and the edge of the bag over this leaves very li ttle room between his ribs and the potential site for PEG tube placement and noted to be high risk fo r contamination of the stool contents to the gastrostomy site. Secondly, patient has a tendency to g rab at his colostomy bag and certainly it would be high risk for pulling out his PEG tube and again d isrupting the colostomy bag is the increased risk for fecal soiling of the gastrostomy site. Next, radha galloway's only complaint is that he is hungry and that he wants to eat. Pleasure feeding could be an option for this patient if deemed adequately appropriate. 3. Constipation. RECOMMENDATIONS: 1. I think he is above average risk for gastrostomy and he already has a colostomy in the left upper quadrant. I would favor and allowing him to have oral feeding as he can tolerate and not placing a gastrostomy tube. Further discussion with the patient's family and potentially ethics committee and the providers at the [facility] will need to follow. In the meantime, I will request a rep eat evaluation by Speech Pathology. 2. He has been on Senokot scheduled. If he ends up getting a gastrostomy tube, then he could start on daily MiraLax. Otherwise, he can continue with stool softeners and stimulant laxatives for now. Irrigation of the colostomy is another option.
[2018-03-23 04:48] LABS: Anion Gap 11 mmol/L (10-20); BUN (Urea Nitrogen) 39 mg/dL (8.4-25.7); Calc. Creatinine Clearance 76 mL/min (70-130); Calcium 8.3 mg/dL (7.8-10.44); Carbon Dioxide 23 mmol/L (23-31); Chloride 108 mmol/L (98-107); Estimated GFR-MDRD Greater than 90; Glucose 114 mg/dL (80-115); Potassium 3.6 mmol/L (3.5-5.1); Sodium 138 mmol/L (136-145)
[2018-03-23] MEDS: Dextrose 5 %-0.45 % NaCl 1,000 ML IV SCH ×2 (07:23→17:52)
[2018-03-23] MEDS: Enoxaparin Sodium 40 MG/0.4 ML SYRINGE SC SCH (07:59)
--- NOTE | 2018-03-23 08:23 | PDOC.FM ---
Addendum entered and electronically signed by Jody Payton MD 03/23/18 11:20: Before the attending saw the patient today, it was discovered that the patient was recently admitted to [facility]'s service. We transferred care to Dr. Muro this morning as the patient had not been seen by an attending or billed for today. He agreed to accept the patient and take over care. Original Note: - Subjective Subjective: Not able to obtain a good history from the patient due to severe intellectual disability. Patient just kept repeating "help me" because he had wet his brief. He did not answer any of my questions. He did not appear in any acute distress. - Objective MAR Reviewed: Yes Vital Signs & Weight: Vital Signs (12 hours) Temp Pulse Resp BP BP BP Pulse Ox 03/23/18 07:26 97.4 F L 76 16 105/60 95 03/23/18 07:20 105/60 03/23/18 04:00 97.6 F 76 18 104/70 95 03/22/18 23:43 97.8 F 83 16 114/74 95 03/22/18 22:47 97.6 F 94 18 94 L Weight Weight 58 kg Result Diagrams: 03/22/18 16:06 03/23/18 04:06 <Jody Payton - Last Filed: 03/23/18 08:22> - Objective Vital Signs & Weight: Vital Signs (12 hours) Temp Pulse Resp BP BP BP Pulse Ox 03/23/18 08:00 97.4 F L 76 16 95 03/23/18 07:26 97.4 F L 76 16 105/60 95 03/23/18 07:20 105/60 03/23/18 04:00 97.6 F 76 18 104/70 95 03/22/18 23:43 97.8 F 83 16 114/74 95 Weight Admit Weight 58 kg Weight 58 kg Result Diagrams: 03/22/18 16:06 03/23/18 04:06 <John Jackson - Last Filed: 03/23/18 11:27> Phys Exam - Physical Examination Constitutional: NAD HEENT: moist MMs Respiratory: no wheezing, no rales, no rhonchi, clear to auscultation bilateral Cardiovascular: RRR, no significant murmur, no rub Gastrointestinal: soft, non-tender, no distention, positive bowel sounds colostomy pink without signs of infection Musculoskeletal: no edema, pulses present Neurological: moves all 4 limbs unable to fully assess due to patients mental status Skin: normal turgor, cap refill <2 seconds <Jody Payton - Last Filed: 03/23/18 08:22> Dx/Plan (1) Aspiration into airway Code(s): T17.908A - UNSP FB IN RESP TRACT, PART UNSP CAUSING OTH INJURY, INIT Status: Acute QualifierTitle: Encounter type: sequela Qualified Code(s): T17.908S - Unspecified foreign body in respiratory tract, part unspecified causing other injury, sequela (2) Zenker diverticulum Code(s): K22.5 - DIVERTICULUM OF ESOPHAGUS, ACQUIRED Status: Acute (3) Dehydration Code(s): E86.0 - DEHYDRATION Status: Acute (4) TIGRE (acute kidney injury) Code(s): N17.9 - ACUTE KIDNEY FAILURE, UNSPECIFIED Status: Acute (5) Malnutrition Code(s): E46 - UNSPECIFIED PROTEIN-CALORIE MALNUTRITION Status: Acute QualifierTitle: Malnutrition type: protein-calorie malnutrition Protein- calorie malnutrition severity: mild Qualified Code(s): E44.1 - Mild protein- calorie malnutrition (6) Constipation Code(s): K59.00 - CONSTIPATION, UNSPECIFIED Status: Acute QualifierTitle: Constipation type: slow transit constipation Qualified Code(s): K59.01 - Slow transit constipation (7) Severe mental retardation Code(s): F72 - SEVERE INTELLECTUAL DISABILITIES Status: Chronic (8) Physical deconditioning Code(s): R53.81 - OTHER MALAISE Status: Acute (9) Seizure disorder Code(s): G40.909 - EPILEPSY, UNSP, NOT INTRACTABLE, WITHOUT STATUS EPILEPTICUS Status: Acute (10) HLD (hyperlipidemia) Code(s): E78.5 - HYPERLIPIDEMIA, UNSPECIFIED Status: Acute QualifierTitle: Hyperlipidemia type: unspecified Qualified Code(s): E78.5 - Hyperlipidemia, unspecified (11) Bipolar disorder Code(s): F31.9 - BIPOLAR DISORDER, UNSPECIFIED Status: Acute QualifierTitle: Active/Remission status: remission status unspecified Qualified Code(s): F31.9 - Bipolar disorder, unspecified (12) Macrocytic anemia Code(s): D53.9 - NUTRITIONAL ANEMIA, UNSPECIFIED Status: Chronic (13) HTN (hypertension) Code(s): I10 - ESSENTIAL (PRIMARY) HYPERTENSION Status: Chronic QualifierTitle: Hypertension type: essential hypertension Qualified Code( s): I10 - Essential (primary) hypertension - Plan Plan: 1) Concern for severe aspiration 2/2 Zenker Diverticulum. Patient was evaluated by outside Speech therapist and they recommended not safe for any foods. Patient was recently diagnosed with Zenker Diverticulum. -GI on board, appreciate recs -Pt poor candidate for PEG tube due to proximity to colostomy and the patient's history of pulling on colostomy. Patient also has strong desire to continue oral feeds. Patient's sister is not POA, but said that she wants for us to do whatever is in his best interest. -Barium Swallow -Consult speech, appreciate recs -Consider ethics consult if needed -Strict NPO 2) Physical Deconditioning -PT/OT -fall precautions 3) Protein-Calorie Malnutrition Prealbumin 12 -Dietitian consult once decision is made about feeding method, currently NPO 4) H/o adenocarcinoma requiring colonic resection and colostomy placement 5) Mild dehydration -D51/2 NS @ 100 -Monitor fluid status 6) Mild TIGRE, resolved Patient's Cr initially was elevated, but has trended down after fluids to 0.78 -Continue fluids while patient is NPO 7) HTN -IV Hydralazine prn while pt is NPO -Continue home BP meds once decision is made about feeding method 8) Bipolar Disorder Patient Olanzapine at home -Continue home med once decision is made about feeding method <Jody Payton - Last Filed: 03/23/18 08:22> Attending Addendum - Attending Addendum Date/Time: 03/23/18 1126 I personally discussed the management with Dr. Payton; Patient recently admitted by [facility] and care transferred this AM to their service. <John Jackson - Last Filed: 03/23/18 11:27>
[2018-03-23 13:45] VITALS: BMI 21.3
--- NOTE | 2018-03-23 14:30 | RAD ---
MODIFIED BARIUM SWALLOW IN THE PRESENCE OF A SPEECH THERAPIST: Date: 03/23/18 HISTORY: Dysphagia oropharyngeal phase, feeding difficulties, Zenker's diverticulum. FINDINGS/IMPRESSION: There is linear penetration without aspiration. There is mild residual in the vallecula and piriform sinuses. Please see recommendations of the speech therapist for further management. POS: RAFAELA
--- NOTE | 2018-03-23 14:47 | PDOC.PN ---
- Subjective Encounter Start Date: 03/23/18 Encounter Start Time: 09:00 -: non-verbal Pt seen for followup re: aspiration. Nonverbal, unable to complete ROS. - Objective Resuscitation Status: Resuscitation Status FULL:Full Resuscitation MAR Reviewed: Yes Vital Signs & Weight: Vital Signs (12 hours) Temp Pulse Resp BP BP Pulse Ox 03/23/18 13:04 97.2 F L 70 16 110/72 97 03/23/18 08:00 97.4 F L 76 16 95 03/23/18 07:26 97.4 F L 76 16 105/60 95 03/23/18 07:20 105/60 03/23/18 04:00 97.6 F 76 18 104/70 95 Weight Admit Weight 127 lb 13.89 oz Weight 128 lb 1.6 oz Result Diagrams: 03/22/18 16:06 03/23/18 04:06 Phys Exam - Physical Examination Constitutional: NAD HEENT: moist MMs, sclera anicteric, oral pharynx no lesions, 2+ tonsils Neck: no nodes, no JVD, supple, full ROM Respiratory: no wheezing, no rales, no rhonchi, clear to auscultation bilateral Cardiovascular: RRR, no rub Gastrointestinal: soft, non-tender, positive bowel sounds ostomy+ Neurological: moves all 4 limbs Psychiatric: normal affect Deviation from normal: Unable to assess orientation to person, place or time Dx/Plan (1) Aspiration into airway Code(s): T17.908A - UNSP FB IN RESP TRACT, PART UNSP CAUSING OTH INJURY, INIT Status: Acute Qualifiers: Encounter type: sequela Qualified Code(s): T17.908S - Unspecified foreign body in respiratory tract, part unspecified causing other injury, sequela Comment: Pt admitted for suspected aspiration, appreciate GI service input (2) Zenker diverticulum Code(s): K22.5 - DIVERTICULUM OF ESOPHAGUS, ACQUIRED Status: Chronic Comment : GI following (3) HTN (hypertension) Code(s): I10 - ESSENTIAL (PRIMARY) HYPERTENSION Status: Chronic Qualifiers: Hypertension type: essential hypertension Qualified Code(s): I10 - Essential (primary) hypertension Comment: Oral meds on hold, start PRN IV hydralazine (4) Dyslipidemia Code(s): E78.5 - HYPERLIPIDEMIA, UNSPECIFIED Status: Chronic Comment: statin is on hold (5) Severe mental retardation Code(s): F72 - SEVERE INTELLECTUAL DISABILITIES Status: Chronic Comment: Supportive management (6) Bipolar disorder Code(s): F31.9 - BIPOLAR DISORDER, UNSPECIFIED Status: Chronic Qualifiers: Active/Remission status: remission status unspecified Qualified Code(s): F31.9 - Bipolar disorder, unspecified - Plan * . Review of Systems - Medications/Allergies Allergies/Adverse Reactions: Allergies Allergy/AdvReac Type Severity Reaction Status Date / Time No Known Allergies Allergy Verified 03/15/18 03:12 Medications: Current Medications Acetaminophen (Tylenol) 650 mg PO Q4H PRN PRN Reason: Headache/Fever or Pain Acetaminophen (Tylenol) 650 mg [place] Q4H PRN PRN Reason: Headache/Fever or Pain Bisacodyl (Dulcolax) 10 mg PO DAILYPRN PRN PRN Reason: Constipation Docusate Sodium (Colace) 100 mg PO BIDPRN PRN PRN Reason: Constipation Enoxaparin Sodium (Lovenox) 40 mg SC 0900 [facility] Last Admin: 03/23/18 07:59 Dose: 40 mg Hydralazine HCl (Apresoline) 5 mg SLOW IVP Q30MIN PRN PRN Reason: SBP>160 Dextrose/Sodium Chloride (D5 1/2 Ns) 1,000 mls @ 100 mls/hr IV .Q10H [facility] Last Admin: 03/23/18 07:23 Dose: 1,000 mls Magnesium Hydroxide (Milk Of Magnesium) 30 ml PO DAILYPRN PRN PRN Reason: Constipation Ondansetron HCl (Zofran Odt) 4 mg PO Q6H PRN PRN Reason: Nausea/Vomiting Ondansetron HCl (Zofran) 4 mg IVP Q6H PRN PRN Reason: Nausea/Vomiting
[2018-03-23] MEDS ORDERED: hydrALAZINE 20 MG/ML VIAL SLOW IVP PRN (14:48)
[2018-03-23] MEDS: Polyethylene Glycol 3350 17 GM Packet PO SCH (19:53)
--- NOTE | 2018-03-23 21:59 | PRG ---
DATE OF SERVICE: 03/23/2018 SUBJECTIVE: Mr. Gonzalez only complains of wanting to eat today. When asked how he is doing, he s tates fine. He denies any abdominal pain. OBJECTIVE: VITAL SIGNS: Temperature 96.8, pulse 74, and blood pressure 120/61. GENERAL: He is in no acute distress. He is awake and alert. LUNGS: Clear to auscultation bilaterally. HEART: Regular rate and rhythm. ABDOMEN: Soft, nontender, nondistended. Bowel sounds are present. EXTREMITIES: No lower extremity edema. IMPRESSION: 1. Dysphagia. He underwent modified barium swallow today that showed no aspiration. He does have r isk for aspiration; however, with appropriate consistencies, he is felt to be safe for oral intake. Honey thickened liquids were recommended by Speech Pathology. 2. Constipation. He was noted to have a significant amount of stool back up in his remainder of col on, which is only a fairly short segment of transverse colon after prior right hemicolectomy and left hemicolectomy. [facility] This may be related to the constipation. RECOMMENDATIONS: 1. Continue oral diet with modifications as directed by Speech Pathology. 2. Patient is felt to be high risk for gastrostomy tube placement in light of the colostomy in the r ight upper quadrant and a very little space between the colostomy and the left lower ribs and his ten dency to grab is a colostomy bag. At this point, PEG tube is not indicated. 3. Start MiraLax scheduled. 4. Irrigate the colostomy to try to mobilize the stool.
[2018-03-24] MEDS: Dextrose 5 %-0.45 % NaCl 1,000 ML IV SCH ×3 (00:28→19:27)
[2018-03-24] MEDS: Polyethylene Glycol 3350 17 GM Packet PO SCH ×3 (08:04→20:56)
[2018-03-24] MEDS: Enoxaparin Sodium 40 MG/0.4 ML SYRINGE SC SCH (08:08)
--- NOTE | 2018-03-24 11:09 | PDOC.PN ---
- Subjective Encounter Start Date: 03/24/18 Encounter Start Time: 07:20 Pt seen for followup re: aspiration. Nonverbal, unable to complete ROS. - Objective Resuscitation Status: Resuscitation Status FULL:Full Resuscitation MAR Reviewed: Yes Vital Signs & Weight: Vital Signs (12 hours) Temp Pulse Resp BP Pulse Ox 03/24/18 08:09 97 F L 67 16 122/71 96 03/24/18 08:00 97 F L 67 16 Weight Admit Weight 127 lb 13.89 oz Weight 128 lb 1.6 oz I&O: 03/23/18 03/24/18 03/25/18 06:59 06:59 06:59 Intake Total 1700 Balance 1700 Result Diagrams: 03/22/18 16:06 03/23/18 04:06 Phys Exam - Physical Examination Constitutional: NAD HEENT: PERRLA, moist MMs, sclera anicteric, oral pharynx no lesions Neck: no nodes, no JVD, supple, full ROM Respiratory: no wheezing, no rales, no rhonchi, clear to auscultation bilateral Cardiovascular: RRR, no rub Gastrointestinal: soft, non-tender, positive bowel sounds ostomy+ Neurological: moves all 4 limbs Psychiatric: normal affect Deviation from normal: Unable to assess orientation to person, place or time Dx/Plan (1) Aspiration into airway Code(s): T17.908A - UNSP FB IN RESP TRACT, PART UNSP CAUSING OTH INJURY, INIT Status: Acute Qualifiers: Encounter type: sequela Qualified Code(s): T17.908S - Unspecified foreign body in respiratory tract, part unspecified causing other injury, sequela Comment: appreciate [employer] input, pt started on diet (2) Zenker diverticulum Code(s): K22.5 - DIVERTICULUM OF ESOPHAGUS, ACQUIRED Status: Chronic Comment : GI following, nil acute (3) HTN (hypertension) Code(s): I10 - ESSENTIAL (PRIMARY) HYPERTENSION Status: Chronic Qualifiers: Hypertension type: essential hypertension Qualified Code(s): I10 - Essential (primary) hypertension Comment: Oral meds resumed. Monitor vital signs, titrate antihypertensives as needed (4) Dyslipidemia Code(s): E78.5 - HYPERLIPIDEMIA, UNSPECIFIED Status: Chronic Comment: continue statin (5) Severe mental retardation Code(s): F72 - SEVERE INTELLECTUAL DISABILITIES Status: Chronic Comment: Supportive management (6) Bipolar disorder Code(s): F31.9 - BIPOLAR DISORDER, UNSPECIFIED Status: Chronic Qualifiers: Active/Remission status: remission status unspecified Qualified Code(s): F31.9 - Bipolar disorder, unspecified - Plan * . Review of Systems - Medications/Allergies Allergies/Adverse Reactions: Allergies Allergy/AdvReac Type Severity Reaction Status Date / Time No Known Allergies Allergy Verified 03/15/18 03:12 Medications: Current Medications Acetaminophen (Tylenol) 650 mg PO Q4H PRN PRN Reason: Headache/Fever or Pain Acetaminophen (Tylenol) 650 mg VA Q4H PRN PRN Reason: Headache/Fever or Pain Bisacodyl (Dulcolax) 10 mg PO DAILYPRN PRN PRN Reason: Constipation Docusate Sodium (Colace) 100 mg PO BIDPRN PRN PRN Reason: Constipation Enoxaparin Sodium (Lovenox) 40 mg SC 0900 [facility] Last Admin: 03/24/18 08:08 Dose: 40 mg Hydralazine HCl (Apresoline) 5 mg SLOW IVP Q30MIN PRN PRN Reason: SBP>160 Hydralazine HCl (Apresoline) 10 mg SLOW IVP Q6H PRN PRN Reason: SBP Greater Than 170 Dextrose/Sodium Chloride (D5 1/2 Ns) 1,000 mls @ 100 mls/hr IV .Q10H [facility] Last Admin: 03/24/18 00:28 Dose: 1,000 mls Magnesium Hydroxide (Milk Of Magnesium) 30 ml PO DAILYPRN PRN PRN Reason: Constipation Ondansetron HCl (Zofran Odt) 4 mg PO Q6H PRN PRN Reason: Nausea/Vomiting Ondansetron HCl (Zofran) 4 mg IVP Q6H PRN PRN Reason: Nausea/Vomiting Polyethylene Glycol (Miralax) 17 gm PO BID [facility] Last Admin: 03/24/18 08:04 Dose: 17 gm
--- NOTE | 2018-03-24 15:53 | PDOC.EVN ---
Event Note - Event Note Event Note: Discussed with patient's psychiatrist at [facility]. He recommends stopping Zyprexa due to its anticholinergic properties (causing constipation) and starting pt on Abilify (5 mg today, 10 mg daily starting tomorrow if pt tolerates).
[2018-03-24] MEDS ORDERED: Aripiprazole 10 MG TAB PO SCH (16:30)
--- NOTE | 2018-03-24 20:23 | PRG ---
DATE OF SERVICE: 03/24/2018 SUBJECTIVE: Zoe had a good day today. He tolerated a solid diet and he has no acute complaints. He has had no cough. OBJECTIVE: VITAL SIGNS: Temperature 97.0, pulse 67, oxygen saturation 96% on room air, blood pressure 122/71. GENERAL: He is in no acute distress. He is awake and alert. LUNGS: Clear to auscultation bilaterally. HEART: Regular rate and rhythm. ABDOMEN: Soft, nontender, nondistended. Bowel sounds are present. EXTREMITIES: No lower extremity edema. IMPRESSION: 1. Dysphagia. Barium swallow shows that he is safe with appropriate consistencies. He has been cindy erating his diet well now without cough or other signs of aspiration. 2. He reportedly had episodes of vomiting prior to admission. There was an abdominal x-ray on prese ntation showed a significant amount of stool retained in the colon. He had colon irrigation yesterda y which resulted only in a couple of small stools. He has been started on MiraLax for which so far h harjinder has only received 2 doses. It may take a few days for the MiraLax only to kick in. It may be that the prior episodes of vomiting that he had could have been related to ileus from the constipation. We will continue to treat this. Currently, he is nondistended and reports no nausea. 3. I spoke with his physician at the [facility]. There were a few questions to be address ed on was that he had some weakness on the left side noted. For this reason, he did undergo CT scan of the head without contrast when he was admitted and there is no evidence of stroke. His psychiatri st at the [facility] noted that he has not been restarted on his Zyprexa yet. There was a concern for anticholinergic effect with the Zyprexa and the constipation. The Zyprexa could likely b e restarted at a low dose and continued if he tolerates or if he has good stool output with the sched uled MiraLax. His psychiatrist is considering a change to lithium instead. I would defer this decis ion to Psychiatry. We will treat the constipation with MiraLax in the meantime. 4. There was a question of pancreatitis a few weeks ago. The patient went to the emergency room in [place] with abdominal pain and vomiting. His lipase was reportedly elevated; however, the upper giles it of normal of the lipase was not clear. It seems that his lipase was not greater than 3 times uppe r limit of normal; however, this is not confirmed. He was discharged from the ER which indicates he unlikely had a significant acute pancreatitis at that time. Nonetheless, given the elevated lipase, his Depakote was discontinued. Again, his psychiatric physicians are adjusting his medications accor dingly. It would be helpful to have the labs and the reference range for review, but at this point I found no evidence of pancreatitis. With this hospitalization, his lipase has been normal. RECOMMENDATIONS: 1. Continue MiraLax twice daily. We will await stool output with this; however, then MiraLax can ta ke a few days to take effect. If he quits tolerating oral intake well as it is possible that he coul d become distended with the MiraLax prior to getting adequate stool output, then we can go back to ir rigating the colostomy further. 2. There is no indication for gastrostomy tube at this point.
[2018-03-24] MEDS: Atorvastatin Calcium 10 MG TAB PO SCH (20:47)
[2018-03-24] MEDS: Simethicone Chewable 80 MG TAB PO SCH (20:47)
[2018-03-24] MEDS: Cholecalciferol (Vitamin D3) 400 UNITS TAB PO SCH (20:47)
[2018-03-24] MEDS: Famotidine 20 MG TAB PO SCH (20:47)
[2018-03-25] MEDS: Dextrose 5 %-0.45 % NaCl 1,000 ML IV SCH ×3 (05:12→15:23)
[2018-03-25] MEDS: Multivit, Therapeutic 1 TAB PO SCH (07:58)
[2018-03-25] MEDS: Simethicone Chewable 80 MG TAB PO SCH ×3 (07:58→22:22)
[2018-03-25] MEDS: Cholecalciferol (Vitamin D3) 400 UNITS TAB PO SCH ×2 (07:58→22:00)
[2018-03-25] MEDS: Polyethylene Glycol 3350 17 GM Packet PO SCH ×2 (07:59→22:00)
[2018-03-25] MEDS: Finasteride 5 MG TAB PO SCH (07:59)
[2018-03-25] MEDS: Aripiprazole 10 MG TAB PO SCH (07:59)
[2018-03-25] MEDS: Lisinopril 2.5 MG TAB PO SCH (07:59)
[2018-03-25] MEDS: Enoxaparin Sodium 40 MG/0.4 ML SYRINGE SC SCH (07:59)
[2018-03-25] MEDS: Famotidine 20 MG TAB PO SCH ×2 (07:59→22:00)
[2018-03-25] MEDS: Tamsulosin HCl 0.4 MG CAP PO SCH (07:59)
[2018-03-25] MEDS ORDERED: TOLNAFTATE TOP SCH (09:00)
[2018-03-25] MEDS ORDERED: Magnesium Citrate 300 ML BOT PO SCH (14:30)
--- NOTE | 2018-03-25 17:53 | PRG ---
DATE OF SERVICE: 03/25/2018. SUBJECTIVE: Mr. Enriquez has had some output into his ostomy, but not very much. He continues to diana ate his oral diet well. OBJECTIVE: VITAL SIGNS: Temperature 97.1, pulse 58, blood pressure 114/77. GENERAL: He is in no acute distress. He is awake and responsive. LUNGS: Have a few expiratory . HEART: Regular rate and rhythm. ABDOMEN: Soft, nontender, nondistended. His colostomy is in place in the left upper quadrant. EXTREMITIES: No lower extremity edema. IMPRESSION: 1. Dysphagia, apparently resolved at this point. His barium swallow shows appropriate consist encies. He has been tolerating his diet well and has had no overt aspiration. There was a question of a Zenker's diverticulum in the past. This was not noted by modified barium swallow. 2. Episodes of vomiting prior to admission. This may have been related to constipation. The x-ray on admission showed a significant amount of stool retained in the colon. He has been receiving Ehsan ax for a few days and irrigation of his colostomy; however, still has had minimal output. We will gi ve him a dose of magnesium citrate today. It typically does take several days for the MiraLax to anisa e effect however. RECOMMENDATIONS: 1. Continue MiraLax twice daily. 2. We will irrigate the colostomy. 3. We will give a dose of magnesium citrate today. 4. Continue oral diet with modification in the consistency per speech pathology recommendations.
--- NOTE | 2018-03-25 18:12 | PDOC.PN ---
- Subjective Encounter Start Date: 03/25/18 Encounter Start Time: 08:00 Pt seen for followup re: aspiration. Nonverbal, unable to complete ROS. - Objective Resuscitation Status: Resuscitation Status FULL:Full Resuscitation MAR Reviewed: Yes Vital Signs & Weight: Vital Signs (12 hours) Temp Pulse Pulse Resp BP BP BP 03/25/18 13:28 58 L 114/81 03/25/18 08:00 97.1 F L 58 L 16 03/25/18 07:59 58 L 114/77 03/25/18 07:10 66 16 114/77 Pulse Ox Pulse Ox 03/25/18 13:28 92 L 03/25/18 08:00 91 L 03/25/18 07:59 03/25/18 07:10 91 L Weight Admit Weight 127 lb 13.89 oz Weight 128 lb 1.6 oz I&O: 03/24/18 03/25/18 03/26/18 06:59 06:59 06:59 Intake Total 1700 1240 Output Total 0 Balance 1700 1240 Result Diagrams: 03/22/18 16:06 03/23/18 04:06 Phys Exam - Physical Examination Constitutional: NAD HEENT: moist MMs Neck: supple Respiratory: clear to auscultation bilateral Cardiovascular: RRR Gastrointestinal: soft, positive bowel sounds ostomy Neurological: moves all 4 limbs Psychiatric: normal affect Dx/Plan (1) Aspiration into airway Code(s): T17.908A - UNSP FB IN RESP TRACT, PART UNSP CAUSING OTH INJURY, INIT Status: Acute Qualifiers: Encounter type: sequela Qualified Code(s): T17.908S - Unspecified foreign body in respiratory tract, part unspecified causing other injury, sequela Comment: pt started on diet, no obvious signs of aspiration (2) HTN (hypertension) Code(s): I10 - ESSENTIAL (PRIMARY) HYPERTENSION Status: Chronic Qualifiers: Hypertension type: essential hypertension Qualified Code(s): I10 - Essential (primary) hypertension Comment: Monitor vital signs, titrate antihypertensives as needed (3) Dyslipidemia Code(s): E78.5 - HYPERLIPIDEMIA, UNSPECIFIED Status: Chronic Comment: continue statin (4) Severe mental retardation Code(s): F72 - SEVERE INTELLECTUAL DISABILITIES Status: Chronic Comment: Supportive management (5) Bipolar disorder Code(s): F31.9 - BIPOLAR DISORDER, UNSPECIFIED Status: Chronic Qualifiers: Active/Remission status: remission status unspecified Qualified Code(s): F31.9 - Bipolar disorder, unspecified Comment: started on Abilify (6) Zenker diverticulum Code(s): K22.5 - DIVERTICULUM OF ESOPHAGUS, ACQUIRED Status: Chronic Comment : No seen on recent imaging - Plan * . ostomy irrigation as per GI service Review of Systems - Medications/Allergies Allergies/Adverse Reactions: Allergies Allergy/AdvReac Type Severity Reaction Status Date / Time No Known Allergies Allergy Verified 03/15/18 03:12 Medications: Current Medications Acetaminophen (Tylenol) 650 mg PO Q4H PRN PRN Reason: Headache/Fever or Pain Last Admin: 03/25/18 01:56 Dose: 650 mg Acetaminophen (Tylenol) 650 mg ND Q4H PRN PRN Reason: Headache/Fever or Pain Aripiprazole (Abilify) 10 mg PO DAILY [facility] Last Admin: 03/25/18 07:59 Dose: 10 mg Aspirin (Aspirin Chewable) 81 mg PO DAILY [facility] Last Admin: 03/25/18 07:59 Dose: 81 mg Atorvastatin Calcium (Lipitor) 10 mg PO HS [facility] Last Admin: 03/24/18 20:47 Dose: 10 mg Bisacodyl (Dulcolax) 10 mg PO DAILYPRN PRN PRN Reason: Constipation Last Admin: 03/24/18 21:43 Dose: 10 mg Cholecalciferol (Vitamin D) 400 units PO BID [facility] Last Admin: 03/25/18 07:58 Dose: 400 units Docusate Sodium (Colace) 100 mg PO BIDPRN PRN PRN Reason: Constipation Enoxaparin Sodium (Lovenox) 40 mg SC 0900 [facility] Last Admin: 03/25/18 07:59 Dose: 40 mg Famotidine (Pepcid) 20 mg PO BID [facility] Last Admin: 03/25/18 07:59 Dose: 20 mg Finasteride (Proscar) 5 mg PO DAILY [facility] Last Admin: 03/25/18 07:59 Dose: 5 mg Hydralazine HCl (Apresoline) 5 mg SLOW IVP Q30MIN PRN PRN Reason: SBP>160 Hydralazine HCl (Apresoline) 10 mg SLOW IVP Q6H PRN PRN Reason: SBP Greater Than 170 Dextrose/Sodium Chloride (D5 1/2 Ns) 1,000 mls @ 100 mls/hr IV .Q10H [facility] Last Admin: 03/25/18 15:23 Dose: 1,000 mls Lisinopril (Zestril) 2.5 mg PO DAILY [facility] Last Admin: 03/25/18 07:59 Dose: Not Given Magnesium Hydroxide (Milk Of Magnesium) 30 ml PO DAILYPRN PRN PRN Reason: Constipation Last Admin: 03/25/18 05:11 Dose: 30 ml Multivitamins (Theragran) 1 tab PO DAILY [facility] Last Admin: 03/25/18 07:58 Dose: 1 tab Ondansetron HCl (Zofran Odt) 4 mg PO Q6H PRN PRN Reason: Nausea/Vomiting Last Admin: 03/25/18 01:56 Dose: 4 mg Ondansetron HCl (Zofran) 4 mg IVP Q6H PRN PRN Reason: Nausea/Vomiting Tolnaftate [ Tolnaftate 1% [place] Powder] 1 [place] 0 each TOP DAILY [facility] Polyethylene Glycol (Miralax) 17 gm PO BID [facility] Last Admin: 03/25/18 07:59 Dose: 17 gm Simethicone (Mylicon Chewable) 80 mg PO TID [facility] Last Admin: 03/25/18 15:15 Dose: 80 mg Tamsulosin HCl (Flomax) 0.4 mg PO QAM [facility] Last Admin: 03/25/18 07:59 Dose: 0.4 mg
[2018-03-25] MEDS: Atorvastatin Calcium 10 MG TAB PO SCH (22:00)
[2018-03-26] MEDS: Dextrose 5 %-0.45 % NaCl 1,000 ML IV SCH ×3 (01:42→14:36)
[2018-03-26 07:59] VITALS: BP 97/60; TEMP 96.9
[2018-03-26] MEDS: Aripiprazole 10 MG TAB PO SCH (08:28)
[2018-03-26] MEDS: Finasteride 5 MG TAB PO SCH (08:28)
[2018-03-26] MEDS: Simethicone Chewable 80 MG TAB PO SCH (08:28)
[2018-03-26] MEDS: Famotidine 20 MG TAB PO SCH (08:28)
[2018-03-26] MEDS: Enoxaparin Sodium 40 MG/0.4 ML SYRINGE SC SCH (08:30)
[2018-03-26] MEDS: Multivit, Therapeutic 1 TAB PO SCH (08:30)
[2018-03-26] MEDS: Cholecalciferol (Vitamin D3) 400 UNITS TAB PO SCH (08:30)
[2018-03-26] MEDS: Lisinopril 2.5 MG TAB PO SCH (08:30)
[2018-03-26] MEDS: Polyethylene Glycol 3350 17 GM Packet PO SCH (08:31)
[2018-03-26] MEDS: Tamsulosin HCl 0.4 MG CAP PO SCH (08:31)
--- NOTE | 2018-03-26 15:13 | PRG ---
DATE OF SERVICE: 03/26/2018 SUBJECTIVE: Per nursing staff, Mr. Gonzalez was able to have a large bowel movement within his ost lucy. There was actually difficult to clean up given its large voluminous nature. He continues to to lerate an oral diet well and upon physical examination today was smiling and in no acute distress. OBJECTIVE: VITAL SIGNS: Temperature 96.9, pulse 66, blood pressure 97/60, respiratory rate 20, satting 96% on r oom air. GENERAL: The patient is lying in bed comfortably, in no acute distress. He is awake and responsive to verbal and tactile stimuli. CARDIOVASCULAR: Regular rate and rhythm. LUNGS: Clear to auscultation. ABDOMEN: Normoactive bowel sounds, soft, nontender, and nondistended. Colostomy is in place in the left upper quadrant. EXTREMITIES: No cyanosis, clubbing or edema. LABORATORY DATA: No current studies available for review. IMAGING DATA: No current GI imaging is available for review. ASSESSMENT AND PLAN: The patient is a 67-year-old male with past medical history of profound intelle ctual disability; colon cancer, status post resection and colostomy placement; and recent diagnosis o f dysphagia; initially admitted to the hospital with complaints of dysphagia. Dysphagia. The patient was initially presenting to the hospital with complaints of dysphagia as noti casey by a bedside/lunch side evaluation by Speech Pathology at the [facility]. He was subse quently transferred to the GI clinic where more expedited evaluation was needed, prompting admission to [facility]. While in the hospital, he did have a speech pathology bedside swallow study that noticed some coughing during ingestion of food primarily thin liquids with recommendations for a soft diet with thickened liquid diet as well. Modified barium swallow performed during this admissi on did not show any evidence of overt or occult aspiration; however, it did show presence of the Zenk er's diverticulum, which is a known finding for this patient. At this point, he is much improved wit h no vomiting during this admission and having a large bowel movement overnight in response to laxati ve therapies. RECOMMENDATIONS: 1. We would continue MiraLax daily at this point now that he has had a large bowel movement. 2. We would continue him on oral diet with modification in the consistencies per Speech Pathology re commendations. We will sign off at this time. Please reconsult with any additional questions.
--- NOTE | 2018-03-26 21:06 | DIS ---
DATE OF ADMISSION: 03/22/2018 DATE OF DISCHARGE: 03/26/2018 PRIMARY CARE PROVIDER: Dr. Ailyn Covington. ADMITTING DIAGNOSES: 1. Aspiration. 2. Dehydration. 3. Moderate protein calorie malnutrition. CONSULTATIONS DURING THIS HOSPITALIZATION: Gastroenterology, Dr. Lars Long. CONDITION OF PATIENT ON THE DAY OF DISCHARGE: Stable. I assessed Mr. Gonzalez on the day of disch arge. He is nonverbal, unable to provide any history. He is in no apparent distress. Vital signs a re stable. S1 and S2 are heard, regular. Lungs are clear to auscultation bilaterally. DISCHARGE MEDICATIONS: Zyprexa was stopped. He is being discharged home on Abilify 10 mg daily, asp irin 81 mg daily, vitamin D3 400 units 2 times a day, finasteride 5 mg daily, lisinopril 2.5 mg daily , multivitamins 1 tablet daily, neomycin/bacitracin/polymyxin eye ointment as needed, MiraLax 17 gram s 2 times a day, ranitidine 150 mg 2 times a day, simethicone 80 mg 3 times a day, Zocor 20 mg in the evening, tamsulosin 0.4 mg daily, and tolnaftate 1% spray topically daily. HOSPITAL COURSE: Mr. Gonzalez is a pleasant 61-year-old gentleman who was admitted to [facility] for suspected aspiration. He was seen by Gastroenterology Service. It was fel t that he was a high risk candidate for PEG tube placement, since he also had a colostomy. He was se en by Speech Pathology Service, and diet was modified per Speech Therapy recommendations. After disc ussion with his psychiatrist, Zyprexa was discontinued because of its anticholinergic properties, whi ch were felt to be contributing to his constipation. He has been started on MiraLax. He has been st arted on Abilify. He is being discharged to [facility] in a stable condition. Many thanks for allowing me to participate in your patient's care. Please feel free to contact me wi th any questions or concerns. DISCHARGE DESTINATION: [facility], from where he was admitted to the hospital. TOTAL AMOUNT OF TIME SPENT COORDINATING THIS DISCHARGE: 33 minutes.
== END 2018-03-26 14:30 | disposition home or self-care (01) | DRG 392 ==
LOC: ERS 15:21 → T4-B 19:55
PROVIDERS: ADMIT Internal Medicine; ATTEND Internal Medicine
DX: R13.10 Dysphagia, unspecified (principal); N17.9 Acute kidney failure, unspecified; E44.0 Moderate protein-calorie malnutrition; F72 Severe intellectual disabilities; Z68.21 Body mass index [BMI] 21.0-21.9, adult; D53.9 Nutritional anemia, unspecified; E86.0 Dehydration; E78.5 Hyperlipidemia, unspecified; N40.0 Benign prostatic hyperplasia without lower urinary tract symptoms; I10 Essential (primary) hypertension; K21.9 Gastro-esophageal reflux disease without esophagitis; G40.909 Epilepsy, unspecified, not intractable, without status epilepticus; F31.9 Bipolar disorder, unspecified; K59.00 Constipation, unspecified; Z93.3 Colostomy status; Z85.038 Personal history of other malignant neoplasm of large intestine; Z79.82 Long term (current) use of aspirin; Z79.899 Other long term (current) drug therapy; Z90.49 Acquired absence of other specified parts of digestive tract
CPT/HCPCS: 36415; 51701; 70450; 74022; 74230; 80048; 80076; 81003; 82607; 82746; 83690; 84134; 85025; 96360; 96361; G8978-GP-CM; G8979-GP-CM; G8980-GP-CM; G8987-GO-CM; G8988-GO-CM; G8989-GO-CM; G8996-GN-CL; G8997-GN-CK; G8997-GN-CL; J1650; Q0162